=== PATIENT | male | born 1960 | race Caucasian/White ===

== ENCOUNTER 2017-06-20 12:53 | Day surgery (SDC) | payer OTHER ==
[2017-06-20] MEDS ORDERED: LIDOCAINE 1% 2 ML INJ ONE (13:04)
[2017-06-20] MEDS ORDERED: ceFAZolin 2 GM/DEXTROSE 100 ML IV ONE (13:07)
[2017-06-20] MEDS ORDERED: LIDOCAINE 1% 2 ML INJ ID PRN (13:12)
[2017-06-20] MEDS ORDERED: LR 1,000 ML IV ONE (13:12)
[2017-06-20] MEDS ORDERED: POLYMYXIN B SULFATE 500,000 UNIT/10 ML SYR IRR ONE (13:35)
[2017-06-20] MEDS ORDERED: BACITRACIN 50,000 UNITS/10 ML SYR IRR ONE (13:35)
[2017-06-20] MEDS ORDERED: BUPIVACAINE 0.5% 30 ML SDV ONE ×2 (13:35→13:42)
--- NOTE | 2017-06-20 13:39 | PDHPUP ---
History & Physical Update H&P update statement: This history and physical update is based on an assessment of the patient which was completed after admission or registration (within 24 hours), but prior to the surgery/procedure.
[2017-06-20] MEDS ORDERED: MIDAZOLAM 2 MG/2 ML VIAL IVP ONE (13:54)
--- NOTE | 2017-06-20 13:56 | PDANEPAE ---
ANE History of Present Illness 57 year old with bilateral bunions ANE Past Medical History - Cardiovascular History Hx Hypertension: Yes Hx Arrhythmias: No Hx Chest Pain: No Hx Coronary Artery / Peripheral Vascular Disease: No Hx CHF / Valvular Disease: No Hx Palpitations: No - Pulmonary History Hx COPD: No Hx Asthma/Reactive Airway Disease: No Hx Recent Upper Respiratory Infection: No Hx Oxygen in Use at Home: No Hx Sleep Apnea: No Sleep Apnea Screening Result - Last Documented: Positive - Neurologic History Hx Cerebrovascular Accident: No Hx Seizures: No Hx Dementia: No - Endocrine History Hx Diabetes: No - Renal History Hx Renal Disorders: No - Liver History Hx Hepatic Disorders: No - Neurological & Psychiatric Hx Hx Neurological and Psychiatric Disorders: Yes Neurological / Psychiatric History Comment: numbness left thigh. anxiety, depression - Cancer History Hx Cancer: No - Congenital Disorder History Hx Congenital Disorders: No - GI History Hx Gastrointestinal Disorders: No - Other Health History Other Health History: none - Chronic Pain History Chronic Pain: No - Surgical History Prior Surgeries: right hip replacement. right rotator cuff repair ANE Review of Systems Review of systems is: negative Review of Systems: - Exercise capacity METS (RN): 5 METS ANE Patient History - Allergies Allergies/Adverse Reactions: oxycodone HCl [From OxyContin] Allergy (Verified 01/26/13 14:46) N/V/SYNCOPE opiates Allergy (Intermediate, Uncoded 04/23/12 22:55) Vomiting HAYFEVER Allergy (Uncoded 01/26/13 14:46) RUNNY NOSE,ITCHY EYES - Home Medications Home Medications: Vitamins Dose Unk 04/23/12 [Last Taken Unknown] Zoloft Dose Unk 04/23/12 [Last Taken 06/19/17 05:00] Aspirin [Aspirin 325 mg (OTC)] 01/19/13 [Last Taken 06/17/17] Atorvastatin Calcium [Lipitor 20 mg (RX)] 01/19/13 [Last Taken 06/19/17] Diazepam [Valium 10 MG (RX)] 01/19/13 [Last Taken 01/14/13] Herbals/Supplements -Info Only 01/19/13 [Last Taken 06/17/17] Naproxen Sodium [Aleve] 01/19/13 [Last Taken 06/17/17] Whitestone-3 Fatty Acids [Fish Oil 1000 mg (OTC)] 01/19/13 [Last Taken 07/16/16] Sertraline HCl [Zoloft 50mg (RX)] 01/27/13 [Last Taken 06/19/17 05:00] Fluticasone Nasal [Flonase Nasal [place] (RX)] 01/29/13 [Last Taken 01/27/13] Herbals/Supplements -Info Only 01/30/13 [Last Taken 06/17/17] Nebivolol HCl [Bystolic 5 mg (*)] 5 mg PO DAILY 06/20/17 [Last Taken Unknown] - NPO status NPO Since - Liquids (Date): 06/20/17 NPO Since - Liquids (Time): 05:30 NPO Since - Solids (Date): 06/19/17 NPO Since - Solids (Time): 20:00 - Smoking Hx Smoking Status: Never smoked - Alcohol Use Alcohol Use: Occasionally - Family Anes Hx Family Hx Anesthesia Complications: none ANE Labs/Vital Signs - Vital Signs Blood Pressure: 135/90 Heart Rate: 66 Respiratory Rate: 16 O2 Sat (%): 92 Height: 172.72 cm Weight: 88.451 kg ANE Physical Exam - Airway Neck exam: FROM Mallampati Score: Class 1 Mouth exam: normal dental/mouth exam - Pulmonary Pulmonary: no respiratory distress - ASA Status ASA Status: II ANE Anesthesia Plan Anesthesia Plan: MAC
[2017-06-20] MEDS ORDERED: fentaNYL 100 MCG/2 ML INJ ONE (14:15)
[2017-06-20] MEDS ORDERED: PROPOFOL/EMULSION 500 MG/50 ML BOTTLE IV ONE ×2 (14:15→15:18)
[2017-06-20] MEDS ORDERED: PROMETHAZINE HCL 25 MG/ML INJ IVP PRN (15:45)
[2017-06-20] MEDS ORDERED: fentaNYL 100 MCG/2 ML INJ IVP PRN (15:45)
[2017-06-20] MEDS ORDERED: ONDANSETRON 4 MG/2 ML VIAL IVP PRN (15:45)
[2017-06-20] MEDS ORDERED: NALOXONE HCL 0.4 MG/ML INJ IVP PRN (15:45)
--- NOTE | 2017-06-20 15:46 | POSTANESTH ---
Post Anesthetic Evaluation Cardiovascular Status: Normal, Stable Respiratory Status: Normal, Stable Level of Consciousness/Mental Status: Can Participate in Eval, Alert and Oriented Pain Control: Adequate, Prn Tx Ordered Nausea/Vomiting Control: Adequate, Prn Tx Ordered Complications Possibly Related to Anesthesia: None Noted
[2017-06-20 17:03] VITALS: BP 120/83
[2017-06-20 17:04] VITALS: PULSE 70; RESP 15; O2SAT 95
[2017-06-20 17:10] VITALS: TEMP 98.2
--- NOTE | 2017-06-21 10:07 | GOP ---
[f rep st] OPERATIVE REPORT DATE OF OPERATION: 06/20/2017 SURGEON: Julian Meza DPM HAIR SPRING CUTTER: None. ANESTHESIA: MAC with local, 40 mL of 0.5% Marcaine plain. PREOPERATIVE DIAGNOSIS: Hallux rigidus, bilateral feet. POSTOPERATIVE DIAGNOSIS: Hallux rigidus, bilateral feet. PROCEDURE PERFORMED: Treatment of hallux rigidus with 1st metatarsophalangeal joint implant, bilater al feet. FINDINGS: Consistent with diagnosis. ESTIMATED BLOOD LOSS: Zero. DESCRIPTION OF PROCEDURE: After identification, the patient was brought into the operating room and placed on the operating table in the supine position. Following IV sedation, local anesthesia was ob tained around the patient's left and right feet utilizing a total of 40 mL of 0.5% Marcaine plain. A pneumatic ankle tourniquet was then placed around the patient's bilateral ankles using ample padding . The feet were then scrubbed, prepped, and draped in the usual aseptic manner. An Esmarch bandage was first utilized to exsanguinate the patient's left foot, and pneumatic ankle tourniquet was then i nflated. Attention was directed to the dorsomedial aspect of the patient's left foot where a 5 cm linear longi tudinal incision was made medial and parallel to the tendon of the extensor hallucis longus. This in cision was deepened through the subcutaneous tissue with care being taken to identify and retract all vital neural and vascular structures. Bleeders were ligated and cauterized as necessary. Incision was deepened to the level of the capsule where a linear capsulotomy was performed. The capsular stru ctures were reflected dorsally and plantarly, thus exposing the 1st metatarsal head at the operative site. It was noted at this time that the cartilage at the 1st metatarsal head was approximately 90% denuded with extensive nicole-articular spurring. A McGlamry elevator was inserted between the 1st met atarsal head and the sesamoid apparatus to serve as a release of adhesions. It was noted that after this release the 1st metatarsophalangeal joint had greater and smoother range of motion. A Cartiva i mplant was then inserted into the head of the 1st metatarsal using standard technique. Fitment, plac ement, and fixation were noted to be extremely secure and appropriate at this time. The 1st metatars al head was then remodeled, removing all bone spurs with both a sagittal saw and a bone bur. This in cision site was then flushed with normal sterile saline solution. Capsular structures were reapproxi mated utilizing 2-0 Vicryl, subcutaneous tissue reapproximated utilizing 3-0 Vicryl, and skin reappro ximated utilizing 5-0 Vicryl in a running subcuticular suture technique. Range of motion at the 1st metatarsophalangeal joint was performed at this time and noted to be extremely smooth and full. The incision was then dressed with Steri-Strips, 4 x 4 gauze, Webril, Guillermo, Ibrahima bandage. The pneumatic ankle tourniquet was then deflated on the left foot. Attention was then directed to the right foot where an Esmarch bandage was utilized to exsanguinate t he right foot, and the pneumatic ankle tourniquet was inflated. An identical procedure was then perf ormed on the right foot. There were no omissions, there were no additions. Upon completion of the e xact same procedure on the right foot, the patient was transported to the postoperative recovery room with vital signs stable and vascular status intact to the feet bilaterally. The patient tolerated p rocedure and anesthesia well. HEMOSTASIS: Right and left pneumatic ankle tourniquet inflated to 250 mmHg for 35 minutes each. MATERIALS: Cartiva implant x2; 2-0, 3-0, 5-0 Vicryl. INJECTABLES: None. CONDITION: Stable. /[id number]/MODL
== END 2017-06-20 17:40 | disposition home or self-care (01) ==
LOC: FSGY 12:53
PROVIDERS: ATTEND Podiatrist
PROC: 0SRM0JZ Replacement of Right Metatarsal-Phalangeal Joint with Synthetic Substitute, Open Approach (ICD-10-PCS; principal; 2017-06-20 14:15)
PROC: 0SRN0JZ Replacement of Left Metatarsal-Phalangeal Joint with Synthetic Substitute, Open Approach (ICD-10-PCS; principal; 2017-06-20 14:15)
DX: M20.21 Hallux rigidus, right foot (principal); M20.22 Hallux rigidus, left foot; I10 Essential (primary) hypertension; Z96.641 Presence of right artificial hip joint
CPT/HCPCS: J0690; J2250; J2704; J3010